=== PATIENT | female | born 1990 | race African-American/Black ===

== ENCOUNTER 2017-11-19 18:33 | Emergency (ER) | payer BC, SELFPAY ==
[2017-11-19] MEDS ORDERED: Ibuprofen 800 MG TAB ONE (19:23)
== END 2017-11-19 19:45 | disposition home or self-care (01) ==
LOC: ERS 18:33
DX: G44.209 Tension-type headache, unspecified, not intractable (principal); G43.909 Migraine, unspecified, not intractable, without status migrainosus
CPT/HCPCS: 99283

== ENCOUNTER 2020-09-01 22:40 | Inpatient (IN) | payer BC, OTHER ==
[~2020-09-01 22:40] MED LIST: Iopamidol 370 76% 100 ML VIAL ONE
[2020-09-01] MEDS ORDERED: Fentanyl 100 MCG/2 ML VIAL ONE (22:49)
[2020-09-01 23:09] LABS: #Basophils 0.1 thou/uL (0.0-0.2); #Eosinphils 0.1 thou/uL (0.0-0.7); #Lymphocytes 3.2 thou/uL (1.20-3.40); #Monocytes 0.9 thou/uL (0.11-0.59); #Neutrophils 3.5 thou/uL (1.40-6.50); %Basophils 1.4 % (0.0-1.0); %Eosinophils 1.4 % (0.0-10.0); %Lymphocytes 40.7 % (21.0-51.0); %Monocytes 11.8 % (0.0-10.0); %Neutrophils 44.7 % (42.0-75.0); Hemoglobin 12.9 g/dL (12.0-16.0); Mean Corpuscular HGB CONC 33.1 g/dL (32.0-36.0); Mean Corpuscular Hemoglobin 29.3 pg (27.0-31.0); Mean Corpuscular Volume 88.5 fL (78.0-98.0); Mean Platelet Volume 9.1 fL (7.4-10.4); Platelet Count 205 thou/uL (130-400); RBC Distribution Width 12.4 % (11.5-14.5); Red Blood Cell (RBC) Count 4.42 mill/uL (4.20-5.40); White Blood Cell (WBC) Count 7.8 thou/uL (4.8-10.8)
[2020-09-01 23:30] LABS: ALT (SGPT) 69 U/L (8-55); AST (SGOT) 99 U/L (5-34); Albumin 4.2 g/dL (3.5-5.0); Alkaline Phosphatase 132 U/L (40-110); Anion Gap 13 mmol/L (10-20); BUN (Urea Nitrogen) 15 mg/dL (7.0-18.7); Bilirubin, Total 0.3 mg/dL (0.2-1.2); Calc. Creatinine Clearance 0 mL/min (70-130); Calcium 8.5 mg/dL (7.8-10.44); Carbon Dioxide 25 mmol/L (22-29); Chloride 106 mmol/L (98-107); Estimated GFR-MDRD Greater than 90; Globulin 3.2 g/dL (2.4-3.5); Glucose 92 mg/dL (70-105); Lipase 62 U/L (8-78); Potassium 3.4 mmol/L (3.5-5.1); Protein, Total 7.4 g/dL (6.0-8.3); Sodium 141 mmol/L (136-145)
[2020-09-02 00:06] LABS: Bacteria/HPF None Seen HPF (None Seen); Bilirubin Negative (Negative); Blood, Urine Negative (Negative); Clarity Clear (Clear); Glucose, Urine (Dipstick) Normal (Negative); Ketone, Urine Negative (Negative); Leukocyte 75 Leu/uL (Negative); Nitrite Negative (Negative); Protein, Urine (Dipstick) Negative (Neg-Trace); RBC/HPF 0-3 HPF (0-3); Specific Gravity, Urine 1.016 (1.002-1.036); Urobilinogen Normal mg/dL (Less than 2); WBC/HPF 0-3 HPF (0-3)
[2020-09-02 00:08] LABS: Pregnancy Test - Urine (BHCG) Negative (Negative); Pregu Control Background? CLEAR/WHITE (CLR/WHITE); Pregu Control Bar Appear? YES (CONTROL BAR); Specific Gravity 1.016 (1.002-1.036)
[2020-09-02] MEDS ORDERED: Ketorolac Tromethamine 30 MG/ML VIAL ONE (02:45)
[2020-09-02 03:19] VITALS: BMI 34.7
[2020-09-02] MEDS ORDERED: Ondansetron ODT 4 MG TAB SL PRN (03:30)
[2020-09-02] MEDS ORDERED: Sodium Chloride 0.9% 1,000 ML IV SCH (03:30)
[2020-09-02] MEDS ORDERED: Ondansetron PF 4 MG/2 ML Vial IVP PRN (03:30)
[2020-09-02] MEDS ORDERED: Acetaminophen 325 MG TAB PO PRN (03:30)
[2020-09-02] MEDS ORDERED: Promethazine HCl 12.5 MG in Sodium Chloride 0.9% 50 ML IVPB PRN (04:50)
[2020-09-02] MEDS ORDERED: Morphine 2 MG/ML VIAL SLOW IVP PRN ×2 (04:50→04:59)
[2020-09-02] MEDS ORDERED: HYDROcodone/Acetaminophen 5/325 mg Tablet PO PRN (04:50)
[2020-09-02] MEDS ORDERED: Labetalol HCl 100 MG/20 ML VIAL SLOW IVP PRN (04:50)
[2020-09-02] MEDS ORDERED: hydrALAZINE 20 MG/ML VIAL SLOW IVP PRN (04:50)
[2020-09-02] MEDS ORDERED: cloNIDine 0.1 MG TAB PO PRN (04:50)
--- NOTE | 2020-09-02 04:53 | PDOC.HHP ---
Hospitalist HPI - History of Present Illness Abdominal pain History of Present Illness: Patient is a 30 year old female with PMH HTN who presents to ED for sudden onset abdominal pain. Patient developed R sided abdominal pain today so severe she fell over. She has never had anything like this happen before. No known family history of gallbladder disease. Pain is 10/10 associated with multiple episodes vomiting. She has morphine allergy in chart but tolerated dose in ED. in ed AKP 132, abd us and ct a/p reports pending but prelim suggests ductal dilation, ed discussed with Dr nieto who recommended GI consult in AM. patient admitted for presumed cholecystitis/choledocolithiasis. Hospitalist ROS - Review of Systems Constitutional: denies: fever, chills, sweats, weakness, malaise, other Eyes: denies: pain, vision change, conjunctivae inflammation, eyelid inflammation, redness, other ENT: denies: ear pain, ear discharge, nose pain, nose discharge, nose congestion, mouth pain, mouth swelling, throat pain, throat swelling, other Respiratory: denies: cough, dry, shortness of breath, hemoptysis, SOB with excertion, pleuritic pain, sputum, wheezing, other Cardiovascular: denies: chest pain, palpitations, orthopnea, paroxysmal noc. d yspnea, edema, light headedness, other Gastrointestinal: reports: nausea, vomiting, abdominal pain. denies: diarrhea, constipation, melena, hematochezia, other Genitourinary: denies: dysuria, frequency, incontinence, hematuria, retention, other Musculoskeletal: denies: neck pain, shoulder pain, arm pain, back pain, hand pa in, leg pain, foot pain, other Skin: denies: rash, lesions, brisa, bruising, other Neurological: denies: weakness, numbness, incoordination, change in speech, confusion, seizures, other All other systems reviewed; all pertinent +/- noted in HPI/Subj - Medication Medications: Active Medications Generic Name Dose Route Start Last Admin Trade Name Freq PRN Reason Stop Dose Admin Sodium Chloride 1,000 mls @ 75 mls/hr 09/02/20 03:30 09/02/20 03:34 Normal Saline 0.9% IV 09/02/20 14:15 1,000 mls .[id number] RICHIE Administration nifedipine Hospitalist History - Past Medical History Other Medical History: HTN migraines - Past Surgical History Past Surgical History: reports: no pertinent history - Family History Family History: reports: no pertinent history - Social History Smoking Status: Never smoker Alcohol: reports: None Drugs: reports: none - Exam General Appearance: NAD, awake alert Eye: PERRL, anicteric sclera ENT: normocephalic atraumatic, no oropharyngeal lesions, moist mucosa Neck: supple, symmetric, no JVD, no thyromegaly, no lymphadenopathy, no carotid bruit Heart: RRR, no murmur, no gallops, no rubs, normal peripheral pulses Respiratory: CTAB, no wheezes, no rales, no ronchi, normal chest expansion, no tachypnea, normal percussion Gastrointestinal: soft, non-distended, normal bowel sounds, no palpable masses, no hepatomegaly, no splenomegaly, no bruit Gastrointestinal - other findings: RUQ tenderness Extremities: no cyanosis, no clubbing, no edema Skin: normal turgor, no lesions, no rashes Neurological: cranial nerve grossly intact, normal sensation to touch, no weakness, no focal deficits, no new deficit Musculoskeletal: normal tone, normal strength, no muscle wasting Psychiatric: normal affect, normal behavior, A&O x 3 Hospitalist Results - Labs Result Diagrams: 09/01/20 22:49 09/01/20 22:49 Lab results: WBC 7.8 thou/uL (4.8-10.8) 09/01/20 22:49 Hgb 12.9 g/dL (12.0-16.0) 09/01/20 22:49 Hct 39.1 % (36.0-47.0) 09/01/20 22:49 MCV 88.5 fL (78.0-98.0) 09/01/20 22:49 Plt Count 205 thou/uL (130-400) 09/01/20 22:49 Neutrophils % 44.7 % (42.0-75.0) 09/01/20 22:49 Sodium 141 mmol/L (136-145) 09/01/20 22:49 Potassium 3.4 mmol/L (3.5-5.1) L 09/01/20 22:49 Chloride 106 mmol/L (98-107) 09/01/20 22:49 Carbon Dioxide 25 mmol/L (22-29) 09/01/20 22:49 BUN 15 mg/dL (7.0-18.7) 09/01/20 22:49 Creatinine 0.77 mg/dL (0.6-1.1) 09/01/20 22:49 Glucose 92 mg/dL (70-105) 09/01/20 22:49 Calcium 8.5 mg/dL (7.8-10.44) 09/01/20 22:49 Total Bilirubin 0.3 mg/dL (0.2-1.2) 09/01/20 22:49 AST 99 U/L (5-34) H 09/01/20 22:49 ALT 69 U/L (8-55) H 09/01/20 22:49 Alkaline Phosphatase 132 U/L (40-110) H 09/01/20 22:49 Serum Total Protein 7.4 g/dL (6.0-8.3) 09/01/20 22:49 Albumin 4.2 g/dL (3.5-5.0) 09/01/20 22:49 Lipase 62 U/L (8-78) 09/01/20 22:49 Urine Ketones Negative mg/dL (Negative) 09/01/20 23:39 Urine Blood Negative (Negative) 09/01/20 23:39 Urine Nitrite Negative (Negative) 09/01/20 23:39 Ur Leukocyte Esterase 75 Vasquez/uL (Negative) A 09/01/20 23:39 Urine RBC 0-3 HPF (0-3) 09/01/20 23:39 Urine WBC 0-3 HPF (0-3) 09/01/20 23:39 Ur Squamous Epith Cells 4-6 HPF (0-3) A 09/01/20 23:39 Urine Bacteria None Seen HPF (None Seen) 09/01/20 23:39 Additional comment: VITAL SIGNS Wed Sep 02, 2020 02:48 ARMINDA Ward, Regla BP: 165/107 Pulse: 70 Resp: 18 Temp: 98.0 (Oral) Pain: 7 O2 sat: 98 on (Room Air) Time: 09/02/2020 02:48. labs, imaging reports, ED documents reviewed Hospitalist H&P A/P - Plan Plan: 30F with PMH HTN admitted for abdominal pain. # abdominal pain # gallbladder disease - sudden 09/05 RUQ pain, imaging preliminary concerning for duct dilation - admit to floor - allergies noted, continue morphine since tolerated in ED, start cipro/flagyl - consult GI/general surgery # HTN - continue nifedipine, no hypotension or sepsis i can see
[2020-09-02] MEDS ORDERED: Electrolyte Replacement Protoc 1 EACH EACH FS SCH (05:00)
[2020-09-02] MEDS: Sodium Chloride 0.9% 1,000 ML IV SCH ×3 (05:07→20:17)
[2020-09-02] MEDS: Cipro 250 MG TAB PO SCH ×2 (05:44→20:15)
[2020-09-02] MEDS: Fentanyl 100 MCG/2 ML VIAL SLOW IVP PRN ×2 (05:45→18:41)
[2020-09-02] MEDS ORDERED: Piperacillin/Tazobactam 3.375 GM in Sodium Chloride 0.9% 100 ML IVPB SCH (06:00)
--- NOTE | 2020-09-02 08:14 | ULT ---
PRELIMINARY REPORT/[facility]/EMERGENCY AFTER HOURS PROCEDURE: EXAM: US Abdomen Limited, Right Upper Quadrant. CLINICAL HISTORY: RUQ pain, N/V, please compare to previous CT ABD TECHNIQUE: Real-time ultrasound of the right upper quadrant with image documentation. COMPARISON: CT - CT ABDOMEN PELVIS W CO - 09/02/2020 12:17 AM CDT FINDINGS: LIVER: Measures 16.5 cm and demonstrates multiple small cysts. GALLBLADDER: No gallstone. No wall thickening. No pericholecystic fluid. The gallbladder appears distended and co ntains sludge. The patient demonstrated a positive sonographic Johnson sign. COMMON BILE DUCT: Appears dilated at 9 mm. PANCREAS: Partially obscured by overlying bowel gas. RIGHT KIDNEY: Unremarkable. No hydronephrosis. Measures 11.8 cm IMPRESSION: Gallbladder sludge. The patient demonstrated a positive sonographic Johnson sign however there is no e vidence for wall thickening or pericholecystic fluid. ELECTRONICALLY SIGNED BY: Talha Stephenson MD Sep 02, 2020 1:55:14 AM CDT This report is intended for review by the ordering physician only, in accordance of law. If you recei ve this report in error, please call [facility] at [phone]. FINAL REPORT GALLBLADDER ULTRASOUND: Echogenic sludge is seen in the gallbladder. No definite gallstone. There is mild dilatation in the common bile duct which corresponds to the CT findings. No significant intrahepatic ductal dilatatio n apparent. I am in agreement with the preliminary report. POS: AGW
--- NOTE | 2020-09-02 08:15 | CT ---
PRELIMINARY REPORT/[facility]/EMERGENCY AFTER HOURS PROCEDURE: EXAM: CT Abdomen and Pelvis with Intravenous Contrast CLINICAL HISTORY: ER 7... 22-year-old female presenting to the emergency department with sudden onset right lower quadr ant abdominal pain. Patient has a history of hypertension otherwise healthy. Patient states she was s itting on the couch when it happened pain was sudden and excruciating. Associated with nausea. No his tory of abdominal surgeries. TECHNIQUE: Axial computed tomography images of the abdomen and pelvis with intravenous contrast. CONTRAST: With; ISOVUE 370, 90ML COMPARISON: None provided. FINDINGS: LUNG BASES: Left lower lobe atelectasis. LIVER: There is hepatic periportal edema. This is nonspecific and can be idiopathic but can also be associat ed with any inflammatory cause of the liver or bile ducts, a generalized edematous state or aggressiv e intravenous fluid administration, venous congestion (most often cardiac related), or blunt hepatic trauma. Recommend correlation with liver function tests and clinical history. A few nonspecific hepatic parenchymal hypodensities, the largest measuring 6 mm in the lateral periph narda of the right lobe of the liver. These most likely reflect cysts or biliary hamartomas. No further follow-up is necessary unless the patient is high risk (known primary malignancy, cirrhosis, hepatit is, sclerosing cholangitis, primary biliary cirrhosis, hemochromatosis, oral contraceptive use, or an abolic steroid use). If high risk, follow-up hepatic protocol CT or MRI is recommended in 6 months. GALLBLADDER AND BILE DUCTS: Small focal calcification along the left lateral nondependent aspect of the gallbladder fundus which may reflect an adherent calculus or possibly a focus of adenomyomatosis. PANCREAS: Unremarkable. SPLEEN: Unremarkable. ADRENAL GLANDS: Unremarkable. KIDNEYS, URETERS, AND BLADDER: Unremarkable. No hydronephrosis or nephrolithiasis. No ureteral or bladder calculi. STOMACH AND BOWEL: No obstruction. No wall thickening. No CT evidence of colitis or acute diverticulitis. APPENDIX: The appendix is normal. PERITONEUM: No free fluid. No free air. REPRODUCTIVE: Unremarkable as visualized. VASCULATURE: No aortic aneurysm. BONES: No fracture or suspicious osseous abnormality. ABDOMINAL WALL AND SOFT TISSUES: Unremarkable. IMPRESSION: 1. There is hepatic periportal edema. This is nonspecific and can be idiopathic but can also be assoc iated with any inflammatory cause of the liver or bile ducts, a generalized edematous state or aggres sive intravenous fluid administration, venous congestion (most often cardiac related), or blunt hepat ic trauma. Recommend correlation with liver function tests and clinical history. 2. Small focal calcification along the left lateral nondependent aspect of the gallbladder fundus whi ch may reflect an adherent calculus or possibly a focus of adenomyomatosis. 3. A few nonspecific hepatic parenchymal hypodensities, the largest measuring 6 mm in the lateral per iphery of the right lobe of the liver. These most likely reflect cysts or biliary hamartomas. No furt her follow-up is necessary unless the patient is high risk (known primary malignancy, cirrhosis, hepa titis, sclerosing cholangitis, primary biliary cirrhosis, hemochromatosis, oral contraceptive use, or anabolic steroid use). If high risk, follow-up hepatic protocol CT or MRI is recommended in 6 months . ELECTRONICALLY SIGNED BY: Bryon Espana MD Sep 02, 2020 1:07:50 AM CDT This report is intended for review by the ordering physician only, in accordance of law. If you recei ve this report in error, please call [facility] at [phone]. FINAL REPORT CT ABDOMEN AND PELVIS: Preliminary report describes periportal edema within the liver. I am in agreement with this assessme nt. Some of this finding may represent mild intrahepatic biliary duct dilatation. Radiopaque gallst ones may not be apparent on CT. Suggest further evaluation with right upper quadrant ultrasound. I am in agreement with the preliminary report. POS: AXEL
[2020-09-02] MEDS: metroNIDAZOLE 500 MG TAB PO SCH ×3 (08:37→20:15)
[2020-09-02] MEDS: Famotidine 20 MG TAB PO SCH ×2 (08:37→20:15)
--- NOTE | 2020-09-02 10:06 | PDOC.HOSPP ---
- Subjective Encounter Date: 09/02/20 Encounter Time: 10:03 Subjective: RUQ pain persists - Objective Vital Signs & Weight: Vital Signs (12 hours) Temp Pulse Resp BP BP Pulse Ox 09/02/20 08:00 99 09/02/20 07:44 97.9 F 76 20 127/78 99 09/02/20 03:55 97 09/02/20 03:18 97 09/02/20 03:16 98.1 F 65 16 141/58 H 97 Weight Weight 234 lb 14.4 oz I&O: 09/01/20 09/02/20 09/03/20 06:59 06:59 06:59 Intake Total 0 Balance 0 Result Diagrams: 09/01/20 22:49 09/01/20 22:49 Hospitalist ROS - Medication Medications: Active Medications Generic Name Dose Route Start Last Admin Trade Name Freq PRN Reason Stop Dose Admin Ciprofloxacin 250 mg 09/02/20 06:00 09/02/20 05:44 Cipro 250 Mg Tab PO 250 mg BID@0600,2000 RICHIE Administration Famotidine 20 mg 09/02/20 09:00 09/02/20 08:37 Famotidine 20 Mg Tab PO 20 mg BID RICHIE Administration Fentanyl 50 mcg 09/02/20 05:34 09/02/20 05:45 Fentanyl 100 Mcg/2 Ml Vial SLOW IVP 50 mcg Q4H PRN Administration Pain Sodium Chloride 1,000 mls @ 75 mls/hr 09/02/20 03:30 09/02/20 03:34 Normal Saline 0.9% IV 09/02/20 14:15 1,000 mls .[id number] RICHIE Administration Sodium Chloride 1,000 mls @ 100 mls/hr 09/02/20 05:00 09/02/20 05:07 Normal Saline 0.9% IV Not Given .Q10H RICHIE Metronidazole 500 mg 09/02/20 09:00 09/02/20 08:37 Metronidazole 500 Mg Tab PO 500 mg TID RICHIE Administration - Exam Eye: anicteric sclera Neck: no JVD Heart: RRR Respiratory: CTAB Gastrointestinal: soft, normal bowel sounds Gastrointestinal - other findings: mild RUQ tenderness Extremities: no edema Hosp A/P (1) Abdominal pain Code(s): R10.9 - UNSPECIFIED ABDOMINAL PAIN Status: Acute (2) Cholecystitis Code(s): K81.9 - CHOLECYSTITIS, UNSPECIFIED Status: Acute - Plan HIDA scan iv analgesia
[2020-09-02] MEDS ORDERED: Potassium Chloride 20 MEQ TAB PO SCH (10:15)
--- NOTE | 2020-09-02 10:42 | CON ---
DATE OF CONSULTATION: CHIEF COMPLAINT: Right upper quadrant abdominal pain. HISTORY OF PRESENT ILLNESS: This is a 30-year-old female, who had a severe episode of pain last night after eating [employer]urgers. The pain did not radiate. She was vomiting. No previous episodes. No fever. She says it feels fine now. PAST MEDICAL HISTORY: Obese, hypertension, migraine headaches. PAST SURGICAL HISTORY: None. MEDICATIONS: She is on an antihypertensive. ALLERGIES: TO PENICILLIN, MORPHINE. SOCIAL HISTORY: She is single. 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 No tobacco or alcohol. FAMILY HISTORY: Hypertension, diabetes, and breast cancer. PHYSICAL EXAMINATION: VITAL SIGNS: Temperature 98, pulse 65, blood pressure 141/58. GENERAL: She is awake, alert, in no apparent distress. HEENT: No jaundice. LUNGS: Clear. HEART: Regular rate and rhythm. ABDOMEN: Obese, soft, nontender. EXTREMITIES: Unremarkable. LABORATORY DATA: White count 7.8, hemoglobin and hematocrit are 12 and 39, platelet count 205. Electrolytes are fine. She had a mild elevation of her AST at 99, ALT at 69, alkaline phosphatase at 138, normal total bilirubin at 0.3. Ultrasound showed dilated common bile duct, but no stones. This was confirmed by CT. ASSESSMENT: Possible choledocholithiasis, but no cholelithiasis. PLAN: GI consultation. Job ID: [id number]
[2020-09-02 12:01] LABS: SARS-CoV-2 MS2 Positive; SARS-CoV-2 N Gene Negative; SARS-CoV-2 S Gene Negative; SARS-CoV-2 by NAA Not Detected (NotDetected); SARS-CoV-2 orf1ab Negative
[2020-09-02] MEDS: Ondansetron PF 4 MG/2 ML Vial IVP PRN (16:12)
--- NOTE | 2020-09-02 16:22 | NM ---
EXAM: NM Hida Scan W Drug PROVIDED CLINICAL HISTORY: Suspected cholecystitis. Patient has right upper quadrant abdominal pain with recent gallbladder ultr asound demonstrating distention of the gallbladder with gallbladder sludge and dilated common duct. Recent CT scan examination also shows mild intrahepatic biliary ductal dilatation. COMPARISON: Right upper quadrant ultrasound and CT abdomen on 09/02/2020. FINDINGS: There is prompt uptake of radiotracer by the liver. No biliary activity is visualized on the one-hour image or the 2 and 4 hour delayed images. No activity is seen in the gallbladder or in the bowel imaging up to 4 hours. IMPRESSION: Absence of biliary or bowel activity imaging up to 4 hours. Findings may be related to high-grade kris iary obstruction or secondary to liver disease. However, given biliary ductal dilatation on recent CT exam, findings are thought to more likely be related to biliary obstruction as opposed to liver di sease although associated liver disease is a possibility.
[2020-09-02 17:07] LABS: #Eosinphils 0.1 thou/uL (0.0-0.7); #Lymphocytes 1.4 thou/uL (1.20-3.40); #Monocytes 0.7 thou/uL (0.11-0.59); #Neutrophils 2.4 thou/uL (1.40-6.50); %Eosinophils 1.7 % (0.0-10.0); %Lymphocytes 30.7 % (21.0-51.0); %Monocytes 14.6 % (0.0-10.0); %Neutrophils 52.1 % (42.0-75.0); Hemoglobin 13.4 g/dL (12.0-16.0); Mean Corpuscular HGB CONC 33.1 g/dL (32.0-36.0); Mean Corpuscular Hemoglobin 29.3 pg (27.0-31.0); Mean Corpuscular Volume 88.4 fL (78.0-98.0); Mean Platelet Volume 9.1 fL (7.4-10.4); Platelet Count 205 thou/uL (130-400); RBC Distribution Width 12.2 % (11.5-14.5); Red Blood Cell (RBC) Count 4.57 mill/uL (4.20-5.40); White Blood Cell (WBC) Count 4.6 thou/uL (4.8-10.8)
[2020-09-02 17:35] LABS: ALT (SGPT) 833 U/L (8-55); AST (SGOT) 821 U/L (5-34); Albumin 3.8 g/dL (3.5-5.0); Alkaline Phosphatase 190 U/L (40-110); Anion Gap 13 mmol/L (10-20); BUN (Urea Nitrogen) 10 mg/dL (7.0-18.7); Bilirubin, Total 2.1 mg/dL (0.2-1.2); Calc. Creatinine Clearance 198 mL/min (70-130); Calcium 8.6 mg/dL (7.8-10.44); Carbon Dioxide 22 mmol/L (22-29); Chloride 109 mmol/L (98-107); Estimated GFR-MDRD Greater than 90; Globulin 3.3 g/dL (2.4-3.5); Glucose 82 mg/dL (70-105); Potassium 3.7 mmol/L (3.5-5.1); Protein, Total 7.1 g/dL (6.0-8.3); Sodium 140 mmol/L (136-145)
[2020-09-02] MEDS: Enoxaparin Sodium 40 MG/0.4 ML SYRINGE SC SCH (20:15)
--- NOTE | 2020-09-03 00:09 | CON ---
DATE OF CONSULTATION: 09/02/2020 CHIEF COMPLAINT: Abdominal pain. HISTORY OF PRESENT ILLNESS: Ms. Mccullough is a 30-year-old woman who was sitting on her couch last night and about 10 minutes after eating some [employer] [place] fries, developed an acute right upper quadrant sharp pain that did not radiate. The pain persisted, and she took an ambulance to the emergency room and vomited in her ambulance ride. She has had no diarrhea or constipation or blood in the stool. No fever with this. She received morphine in the emergency room and a dose of fentanyl this morning but since then has not required pain medicine. Her pain has significantly improved. She had a CT scan of the abdomen and pelvis performed in the emergency room, which showed mild dilation of the common bile duct. She had focal calcification along the dependent aspect of the gallbladder. Some hepatic periportal edema was noted. A few small hepatic hypodensities measuring up to 6 mm were also noted. Ultrasound of the gallbladder showed echogenic sludge in the gallbladder without definite stones. Again, mild dilation of the common bile duct to 9 mm was noted. She had a HIDA scan today that did not show emptying of contrast into the small bowel or biliary tree or gallbladder. She has had no fever. PAST MEDICAL HISTORY: Hypertension, migraine headaches. PAST SURGICAL HISTORY: Negative. FAMILY HISTORY: Negative for GI malignancy. SOCIAL HISTORY: No alcohol, tobacco, or drugs. ALLERGIES: MORPHINE AND PENICILLIN. INPATIENT MEDICATIONS: Include: 1. Ciprofloxacin. 2. Metronidazole. 3. Famotidine. 4. Enoxaparin. REVIEW OF SYSTEMS: Negative x10 systems reviewed except as stated in the history of present illness. PHYSICAL EXAMINATION: VITAL SIGNS: Temperature 97.7, pulse 61, blood pressure 148/86. GENERAL: She is in no acute distress. Alert and oriented x3. HEENT: Eyes have no scleral icterus. Oropharynx is clear without lesions. NECK: No cervical or supraclavicular lymphadenopathy. LUNGS: Clear to auscultation bilaterally. HEART: Regular rate and rhythm without murmur. ABDOMEN: Soft. She is tender over the right upper quadrant, worse with inspiration. Bowel sounds are present. EXTREMITIES: No lower extremity edema. NEUROLOGIC: Cranial nerves are grossly intact. LABORATORY DATA: White blood cell count 4.6, hemoglobin 13.4, platelets 205. Creatinine 0.71; bilirubin is 2.1, up from 0.3 last night. AST , up from 99 last night; ALT , up from 69 last night; alkaline phosphatase 190; albumin 3.8; lipase 62 last night. IMPRESSION: Choledocholithiasis. RECOMMENDATIONS: Follow through with ERCP in the morning. Cholecystectomy can follow that procedure or the next day. Risks and benefits of ERCP were discussed in detail with the patient. Job ID: [id number]
[2020-09-03] MEDS: Cipro 250 MG TAB PO SCH ×2 (06:20→20:00)
[2020-09-03 06:50] LABS: #Eosinphils 0.1 thou/uL (0.0-0.7); #Lymphocytes 1.1 thou/uL (1.20-3.40); #Monocytes 0.6 thou/uL (0.11-0.59); #Neutrophils 3.9 thou/uL (1.40-6.50); %Basophils 0.5 % (0.0-1.0); %Eosinophils 1.1 % (0.0-10.0); %Lymphocytes 18.8 % (21.0-51.0); %Monocytes 11.3 % (0.0-10.0); %Neutrophils 68.2 % (42.0-75.0); Hemoglobin 12.9 g/dL (12.0-16.0); Mean Corpuscular HGB CONC 31.8 g/dL (32.0-36.0); Mean Corpuscular Hemoglobin 28.5 pg (27.0-31.0); Mean Corpuscular Volume 89.6 fL (78.0-98.0); Mean Platelet Volume 9.6 fL (7.4-10.4); Platelet Count 194 thou/uL (130-400); RBC Distribution Width 12.2 % (11.5-14.5); Red Blood Cell (RBC) Count 4.55 mill/uL (4.20-5.40); White Blood Cell (WBC) Count 5.7 thou/uL (4.8-10.8)
[2020-09-03 06:51] LABS: ALT (SGPT) 646 U/L (8-55); AST (SGOT) 367 U/L (5-34); Albumin 3.8 g/dL (3.5-5.0); Alkaline Phosphatase 199 U/L (40-110); Anion Gap 15 mmol/L (10-20); BUN (Urea Nitrogen) 11 mg/dL (7.0-18.7); Bilirubin, Direct 0.6 mg/dL (0.1-0.3); Calc. Creatinine Clearance 201 mL/min (70-130); Calcium 8.8 mg/dL (7.8-10.44); Carbon Dioxide 20 mmol/L (22-29); Chloride 107 mmol/L (98-107); Estimated GFR-MDRD Greater than 90; Glucose 66 mg/dL (70-105); Magnesium 1.6 mg/dL (1.6-2.6); Potassium 3.8 mmol/L (3.5-5.1); Protein, Total 6.9 g/dL (6.0-8.3); Sodium 138 mmol/L (136-145)
[2020-09-03] MEDS: metroNIDAZOLE 500 MG TAB PO SCH ×3 (08:01→20:01)
[2020-09-03] MEDS: Famotidine 20 MG TAB PO SCH ×2 (08:02→20:00)
[2020-09-03] MEDS: Sodium Chloride 0.9% 1,000 ML IV SCH ×2 (08:45→20:42)
[2020-09-03] MEDS ORDERED: Lidocaine 1% PF 5 ML VIAL ONE (09:34)
[2020-09-03] MEDS ORDERED: PROPOFOL 200 MG/20 ML VIAL ONE (09:34)
[2020-09-03] MEDS ORDERED: Rocuronium Bromide 10 MG/ML (10ML VIAL) ONE (09:34)
[2020-09-03] MEDS ORDERED: Magnesium 2 GM/50 ML 2 GM in Premix Bag 1 BAG IVPB SCH ×2 (10:30→15:00)
[2020-09-03] MEDS ORDERED: Iothalamate Meglumine 60% 50 ML VIAL FS ONE (10:41)
[2020-09-03] MEDS ORDERED: Fentanyl 100 MCG/2 ML VIAL ONE ×2 (10:43→13:12)
[2020-09-03] MEDS ORDERED: SUGAMMADEX SODIUM 200 MG/2 ML VIAL ONE (10:43)
[2020-09-03] MEDS ORDERED: Indomethacin 50 MG SUPP ONE (10:48)
[2020-09-03] MEDS ORDERED: Ondansetron HCl/PF 4 MG/2 ML Vial IVP PRN (12:46)
[2020-09-03] MEDS ORDERED: Promethazine HCl 25 MG/ML VIAL IM PRN (12:46)
[2020-09-03] MEDS ORDERED: Promethazine HCl 25 MG/ML VIAL SLOW IVP PRN (12:46)
--- NOTE | 2020-09-03 12:52 | RAD ---
XR ERCP History: Elevated total bilirubin Comparison: Nuclear medicine hepatobiliary scan prior day Findings: Only 2 spot images were obtained from the procedure room. There is no dilatation of the com mon bile duct or the intrahepatic biliary system. There is felt to be some contrast extending into the gallbladder on the second image. Impression: Fluoroscopy for procedural purposes.
[2020-09-03] MEDS ORDERED: Labetalol HCl 100 MG/20 ML VIAL ONE (13:01)
[2020-09-03] MEDS ORDERED: Ondansetron PF 4 MG/2 ML Vial ONE (13:16)
[2020-09-03] MEDS ORDERED: cloNIDine 0.1 MG TAB ONE (13:30)
--- NOTE | 2020-09-03 15:48 | PRG ---
DATE OF SERVICE: 09/03/2020 SUBJECTIVE: The patient underwent ERCP today. She is doing okay. PLAN: The plan is to proceed with laparoscopic cholecystectomy tomorrow morning. I discussed the procedure with her as well as risks and benefits. We have her scheduled for 9 o'clock tomorrow morning. Job ID: [id number]
--- NOTE | 2020-09-03 16:38 | PDOC.HOSPP ---
- Subjective Encounter Date: 09/03/20 Encounter Time: 16:37 Subjective: post ERCP, much less abd pain - Objective Vital Signs & Weight: Vital Signs (12 hours) Temp Pulse Resp BP Pulse Ox 09/03/20 08:00 97.9 F 74 18 132/81 97 09/03/20 07:50 97.9 F 74 132/81 98 09/03/20 06:41 97.8 F 77 16 117/79 98 Weight Weight 234 lb 14.4 oz I&O: 09/02/20 09/03/20 09/04/20 06:59 06:59 06:59 Intake Total 0 628 Balance 0 628 Result Diagrams: 09/03/20 05:36 09/03/20 05:45 Hospitalist ROS - Medication Medications: Active Medications Generic Name Dose Route Start Last Admin Trade Name Freq PRN Reason Stop Dose Admin Ciprofloxacin 250 mg 09/02/20 06:00 09/03/20 06:20 Cipro 250 Mg Tab PO Not Given BID@0600,2000 [facility] Enoxaparin Sodium 40 mg 09/02/20 21:00 09/02/20 20:15 Enoxaparin Sodium 40 Mg/0.4 Ml Syringe SC 40 mg 2100 RICHIE Administration Famotidine 20 mg 09/02/20 09:00 09/03/20 08:02 Famotidine 20 Mg Tab PO Not Given BID RICHIE Fentanyl 50 mcg 09/02/20 05:34 09/02/20 18:41 Fentanyl 100 Mcg/2 Ml Vial SLOW IVP 50 mcg Q4H PRN Administration Pain Sodium Chloride 1,000 mls @ 100 mls/hr 09/02/20 05:00 09/03/20 08:45 Normal Saline 0.9% IV 1,000 mls .Q10H RICHIE Administration Metronidazole 500 mg 09/02/20 09:00 09/03/20 15:13 Metronidazole 500 Mg Tab PO 500 mg TID RICHIE Administration Ondansetron HCl 4 mg 09/02/20 04:50 09/02/20 16:12 Ondansetron Pf 4 Mg/2 Ml Vial IVP 4 mg Q6H PRN Administration Nausea/Vomiting use 1st - Exam General Appearance: awake alert Neck: no JVD Heart: RRR, no murmur Respiratory: CTAB Gastrointestinal: soft, normal bowel sounds Extremities: no edema Hosp A/P (1) Abdominal pain Code(s): R10.9 - UNSPECIFIED ABDOMINAL PAIN Status: Acute Qualifiers: Abdominal location: epigastric Qualified Code(s): R10.13 - Epigastric pain (2) Cholecystitis Code(s): K81.9 - CHOLECYSTITIS, UNSPECIFIED Status: Acute (3) Choledocholithiasis Code(s): K80.50 - CALCULUS OF BILE DUCT W/O CHOLANGITIS OR CHOLECYST W/O OBST Status: Acute - Plan Post ERCP with extraction common duct stones Lap heidi tomorrow
--- NOTE | 2020-09-03 17:24 | OP ---
DATE OF PROCEDURE: 09/03/2020 PROCEDURE: ERCP with sphincterotomy and removal of biliary calculus. INDICATION FOR PROCEDURE: Choledocholithiasis. DESCRIPTION OF PROCEDURE: After the risks and benefits of the procedure were explained to the patient including risks of bleeding, infection, perforation, reactions to anesthesia, aspiration, post ERCP pancreatitis, and/or pain, informed consent was obtained. The patient was then taken to the endoscopy suite where general anesthesia was administered followed by endotracheal tube intubation. Once the patient was adequately sedated and intubated, she was maneuvered into the prone position followed by introduction of the standard duodenoscope into the mouth with intubation of the esophagus, stomach, and the proximal small intestines with the findings listed below. The patient tolerated the procedure well with no immediate perioperative complications. Upon conclusion of the procedure, all equipment was removed from the patient, and she was transferred to PACU in satisfactory condition. FINDINGS: EGD findings: Limited views were obtained of the esophagus, stomach, and the proximal small intestines given the side-viewing nature of the duodenal scope. Of the limited views obtained, normal-appearing mucosa was seen in the proximal, mid, and distal esophagus. Normal-appearing mucosa was also seen in the gastric cardia, fundus, body, incisura, and antrum with mild erythema in the peripyloric region. Normal-appearing mucosa was also seen within the duodenal bulb and second portion of the duodenum. There was no evidence of erosions, ulcerations, mass lesions, or active/recent bleeding. ERCP findings: The duodenoscope was advanced to the second portion of the duodenum with easy identification of the ampulla; however, a small polypoid nodule immediately adjacent to the ampulla, raising concern for 2 exits/orifices for the pancreatic and common bile duct respectively. However, with identification of the ampulla, it was successfully cannulated with a 5 mm Ultratome sphincterotome with initial attempts at placing a guidewire within the common bile duct unsuccessful; however, with repositioning of the sphincterotome and with moderate difficulty, the guidewire was successfully placed within the common bile duct and into the intrahepatic biliary tree. With successful cannulation of the common bile duct, a cholangiogram was then performed showing the common bile duct measuring approximately 6 to 7 mm in size with no observed filling defects on initial examination. Given the higher likelihood of choledocholithiasis, the sphincterotome was then exchanged over the guidewire using exchange technique for a 9 to 12 mm biliary balloon. Once the exchange was successful, the biliary balloon was advanced into the common bile duct, and upon initial sweep of the duct, there was yielded some small yellow in coloration stone debris measuring approximately 1 mm in size. This stone debris was minimal at best. Further successive balloon sweeps throughout the entirety of the common hepatic and common bile duct did not yield any additional debris or biliary sludge. Occlusion cholangiogram performed at the end of the procedure showed nice smooth contours within the common bile duct and no additional filling defects. However, the gallbladder did not fill appropriately even with occlusion cholangiogram, raising concern for additional stones within the gallbladder. On conclusion of the procedure, contrast was seen draining effectively from the common bile duct with no obstruction noted, at which point the procedure was terminated. IMPRESSION: 1. Choledocholithiasis with a minimal amount of biliary debris measuring approximately 1 mm in diameter, now status post successful sphincterotomy and removal of biliary calculi. 2. Nonfilling of the gallbladder, raising concern for continued cholelithiasis and obstruction related to that. RECOMMENDATIONS: 1. Would continue to trend the patient's LFTs and monitor for signs of post ERCP pancreatitis in the postoperative period. 2. Would continue IV antibiotics as you are doing. 3. Pain control per primary team. 4. Would consult the General Surgery Service for evaluation of the patient and cholecystectomy in the near future. 5. Would hold any anticoagulation for the time being given the sphincterotomy performed today. We will continue to follow. Please call with any questions. Job ID: [id number]
[2020-09-03] MEDS: Ketorolac Tromethamine 30 MG/ML VIAL IVP PRN (19:59)
[2020-09-03] MEDS: Enoxaparin Sodium 40 MG/0.4 ML SYRINGE SC SCH (20:01)
[2020-09-03] MEDS ORDERED: cloNIDine 0.1 MG TAB PO PRN (20:35)
[2020-09-04] MEDS: Ketorolac Tromethamine 30 MG/ML VIAL IVP PRN ×2 (02:19→23:57)
[2020-09-04] MEDS: Acetaminophen 325 MG TAB PO PRN ×2 (06:01→20:31)
[2020-09-04] MEDS: Cipro 250 MG TAB PO SCH ×2 (06:01→20:32)
[2020-09-04 06:40] LABS: ALT (SGPT) 413 U/L (8-55); AST (SGOT) 122 U/L (5-34); Albumin 3.6 g/dL (3.5-5.0); Alkaline Phosphatase 182 U/L (40-110); Anion Gap 13 mmol/L (10-20); BUN (Urea Nitrogen) 12 mg/dL (7.0-18.7); Bilirubin, Total 0.5 mg/dL (0.2-1.2); Calc. Creatinine Clearance 201 mL/min (70-130); Calcium 8.7 mg/dL (7.8-10.44); Carbon Dioxide 26 mmol/L (22-29); Chloride 107 mmol/L (98-107); Estimated GFR-MDRD Greater than 90; Globulin 3.3 g/dL (2.4-3.5); Glucose 104 mg/dL (70-105); Potassium 3.6 mmol/L (3.5-5.1); Protein, Total 6.9 g/dL (6.0-8.3); Sodium 142 mmol/L (136-145)
[2020-09-04] MEDS: Famotidine 20 MG TAB PO SCH ×3 (07:15→20:34)
[2020-09-04] MEDS: metroNIDAZOLE 500 MG TAB PO SCH ×3 (07:15→20:32)
[2020-09-04] MEDS: Ondansetron PF 4 MG/2 ML Vial IVP PRN (07:15)
[2020-09-04] MEDS: Sodium Chloride 0.9% 1,000 ML IV SCH ×2 (07:16→16:46)
[2020-09-04] MEDS ORDERED: Bupivacaine/Epinephrine 0.25% 30 ML VIAL ONE (08:52)
[2020-09-04] MEDS ORDERED: Fentanyl 100 MCG/2 ML VIAL ONE ×2 (08:52→10:13)
[2020-09-04] MEDS ORDERED: Levofloxacin 500 mg/D5W 100 ml Premix Bag ONE (08:53)
[2020-09-04] MEDS ORDERED: SUGAMMADEX SODIUM 200 MG/2 ML VIAL ONE (08:53)
[2020-09-04] MEDS ORDERED: Meperidine HCl/PF 25 MG/ML VIAL ONE (08:53)
[2020-09-04] MEDS ORDERED: Famotidine/PF 20 mg/2ml Vial ONE (08:53)
[2020-09-04] MEDS ORDERED: Promethazine HCl 25 MG/ML VIAL IM PRN ×2 (09:34→10:06)
[2020-09-04] MEDS ORDERED: Meperidine HCl/PF 25 MG/ML VIAL SLOW IVP PRN (09:34)
[2020-09-04] MEDS ORDERED: Promethazine HCl 25 MG/ML VIAL SLOW IVP PRN (09:34)
[2020-09-04] MEDS ORDERED: Ondansetron HCl/PF 4 MG/2 ML Vial IVP PRN (09:34)
[2020-09-04] MEDS ORDERED: Ondansetron PF 4 MG/2 ML Vial IVP PRN (10:06)
[2020-09-04] MEDS ORDERED: Calcium Carbonate 500 MG ChewTAB PO PRN (10:06)
[2020-09-04] MEDS ORDERED: hydrALAZINE 20 MG/ML VIAL SLOW IVP PRN (10:06)
[2020-09-04] MEDS ORDERED: HYDROcodone/Acetaminophen 10/325 mg Tablet PO PRN (10:06)
[2020-09-04] MEDS ORDERED: Mag-Al 1200 mg/1200 mg/30 ML UDCUP PO PRN (10:06)
[2020-09-04] MEDS ORDERED: Dextrose 50% Abboject 50 ML SYRINGE SLOW IVP PRN (10:06)
[2020-09-04] MEDS ORDERED: Dextrose 5% in Water 1,000 ML IV PRN (10:06)
[2020-09-04] MEDS ORDERED: Dexamethasone 20 MG/5 ML VIAL ONE (10:10)
[2020-09-04] MEDS ORDERED: Rocuronium Bromide 10 MG/ML (10ML VIAL) ONE (10:10)
[2020-09-04] MEDS ORDERED: PHENYLEPHRINE-NS 100 MCG/ML 10 ML SYRINGE ONE (10:10)
[2020-09-04] MEDS ORDERED: Ondansetron PF 4 MG/2 ML Vial ONE (10:10)
[2020-09-04] MEDS ORDERED: Lidocaine 1% PF 5 ML VIAL ONE (10:10)
[2020-09-04] MEDS ORDERED: Ketorolac Tromethamine 30 MG/ML VIAL ONE (10:10)
[2020-09-04] MEDS ORDERED: PROPOFOL 200 MG/20 ML VIAL ONE (10:10)
[2020-09-04] MEDS ORDERED: Metoclopramide HCl 10 MG/2 ML VIAL ONE (10:10)
--- NOTE | 2020-09-04 11:34 | OP ---
DATE OF PROCEDURE: 09/04/2020 PREOPERATIVE DIAGNOSIS: Symptomatic cholelithiasis. PROCEDURE PERFORMED: Laparoscopic cholecystectomy. INDICATIONS: This is a 30-year-old female, morbidly obese, who came in with severe right upper quadrant pain radiating to the back. Ultrasound and CT did not show any gallstones, but she developed a bump in her LFTs. GI was consulted. ERCP was performed and stone extracted. She is here for a cholecystectomy. FINDINGS: Her cystic duct was enlarged. There was edema of the lower portion of the gallbladder from inflammation. DESCRIPTION OF PROCEDURE: After informed consent was obtained, the patient was taken to the operating room, given general endotracheal anesthesia, placed in the supine position. Abdomen was prepped and draped in usual fashion. Local anesthesia infiltrated subcutaneously and deep, and a subumbilical incision was performed. Subcu divided sharply. The fascia grasped. Two stay sutures of 0 Vicryl placed through each side of midline. Midline incised. Digital palpation revealed no local adhesions. Blunt 12 mm trocar inserted. Pneumoperitoneum was created to a pressure of 15 mmHg. 0-degree laparoscope inserted. Under direct vision, three 5 mm ports placed subcostally. The gallbladder was grasped, advanced superiorly, and the peritoneum was opened distally to dissect out the cystic duct, cystic artery in critical view. The clip was placed at the base of the gallbladder on the cystic duct and as well as distally and the cystic duct divided. The artery triply ligated and divided. The gallbladder removed from its fossa utilizing electrocautery, removed from the abdomen through the umbilical port. Hemostasis assured. Trocars and retractors removed. The fascia closed with interrupted 2-0 Vicryl sutures. The skin closed with interrupted 4-0 Rapide. Dermabond applied. The patient tolerated the procedure well, transferred to Recovery in good condition. Sponge and needle count verified correct x2. Job ID: [id number]
[2020-09-04] MEDS: HYDROcodone/Acetaminophen 10/325 mg Tablet PO PRN ×2 (16:46→23:56)
--- NOTE | 2020-09-04 17:56 | PRG ---
DATE OF SERVICE: 09/04/2020 REASON FOR CONSULTATION: Choledocholithiasis. SUBJECTIVE: Overnight, the patient did not have any acute events or problems. She did have some residual right upper quadrant abdominal pain this morning prior to cholecystectomy, but since the cholecystectomy, she denies any abdominal pain at all. Currently, she denies any nausea, vomiting, fevers, chills, hematemesis, melena, or hematochezia. OBJECTIVE: VITAL SIGNS: Temperature 98.5, pulse 66, blood pressure 144/89, respiratory rate 18, saturating 97% on room air. GENERAL: The patient was lying in bed, in no acute distress. Alert and oriented x4. CARDIOVASCULAR: Regular rate and rhythm. RESPIRATORY: Clear to auscultation bilaterally. ABDOMEN: Normoactive bowel sounds. Soft, nondistended. Tenderness to palpation in the right upper quadrant and over the trocar sites. EXTREMITIES: No cyanosis, clubbing, or edema. LABORATORY DATA: Chemistry with a sodium of 142, potassium 3.6, chloride 107, CO2 of 26, BUN 12, creatinine 0.7, glucose 104. AST 122, ALT 413, alkaline phosphatase 182, total bilirubin 0.5. IMAGING DATA: The patient underwent ERCP on September 03, 2020, with moderate difficulty with cannulation of the ampulla. However, upon successful cannulation of the ampulla, there were no filling defects seen on initial cholangiogram. After sphincterotomy, balloon sweeps were performed with obtaining minimal amounts of yellow stone debris no greater than 1 mm in diameter. At the end of the procedure, bile and contrast were draining well from the sphincterotomy. However, during the course of the procedure, adequate filling of the gallbladder could not be visualized concerning for possible obstruction to the cystic duct. ASSESSMENT AND PLAN: The patient is a 30-year-old female with past medical history of hypertension and migraine headaches, presenting with cholelithiasis and probable choledocholithiasis. Choledocholithiasis: The patient presented to the hospital with increased right upper quadrant abdominal pain, nausea, and vomiting with LFTs that were concerning for an obstructive-type process. She subsequently underwent ERCP on September 03, 2020, with sphincterotomy performed in successive balloon sweeps yielding a minimal amount of yellow stone debris. At this time, the debris was most likely not causing complete obstruction, but she could have passed a stone prior to the procedure during the course of the ERCP, however, adequate filling of the gallbladder was not visualized consistent with a possible obstruction either at the outflow tract of the gallbladder itself or within the cystic duct, now status post cholecystectomy with significant reduction in her abdominal pain and no signs of post ERCP pancreatitis. RECOMMENDATIONS: 1. Pain control per primary team. 2. We will consider repeating her LFTs prior to discharge for further monitoring of liver inflammation. At this time, we will sign off. Please call with any additional questions. Job ID: [id number]
--- NOTE | 2020-09-04 20:05 | PDOC.HOSPP ---
- Subjective Encounter Date: 09/04/20 Encounter Time: 20:05 Subjective: Patient seen and examined for choledocholithiasis. Underwent ERCP followed by cholecystectomy. Some pain over the surgical site. No nausea or diarrhea reported - Objective Vital Signs & Weight: Vital Signs (12 hours) Temp Pulse Resp BP Pulse Ox 09/04/20 16:03 98.5 F 66 18 144/89 H 97 09/04/20 11:31 98.3 F 72 18 166/99 H 94 L Weight Weight 234 lb 14.4 oz I&O: 09/03/20 09/04/20 09/05/20 06:59 06:59 06:59 Intake Total 628 Balance 628 Result Diagrams: 09/05/20 05:31 09/05/20 05:31 Radiology Reviewed by me: Yes (HIDA scan reviewed) Hospitalist ROS - Review of Systems Respiratory: denies: cough, dry, shortness of breath, hemoptysis, SOB with excertion, pleuritic pain, sputum, wheezing, other Cardiovascular: denies: chest pain, palpitations, orthopnea, paroxysmal noc. dyspnea, edema, light headedness, other - Medication Medications: Active Medications Generic Name Dose Route Start Last Admin Trade Name Freq PRN Reason Stop Dose Admin Acetaminophen 650 mg 09/02/20 04:50 09/04/20 06:01 Acetaminophen 325 Mg Tab PO 650 mg Q4H PRN Administration Headache/Fever/Mild Pain (1-3) Hydrocodone Bitart/Acetaminophen 2 tab 09/04/20 10:06 09/04/20 16:46 Hydrocodone/Acetaminophen 10/325 Mg Tablet PO 2 tab Q6H PRN Administration Severe Pain (7-10) Ciprofloxacin 250 mg 09/02/20 06:00 09/04/20 06:01 Cipro 250 Mg Tab PO 250 mg BID@0600,2000 RICHIE Administration Clonidine 0.1 mg 09/03/20 20:35 09/03/20 20:41 Clonidine 0.1 Mg Tab PO 0.1 mg BIDPRN PRN Administration SBP > 160 use second Enoxaparin Sodium 40 mg 09/02/20 21:00 09/03/20 20:01 Enoxaparin Sodium 40 Mg/0.4 Ml Syringe SC Not Given 2100 RICHIE Famotidine 20 mg 09/02/20 09:00 09/04/20 07:15 Famotidine 20 Mg Tab PO 20 mg BID RICHIE Administration Fentanyl 50 mcg 09/02/20 05:34 09/02/20 18:41 Fentanyl 100 Mcg/2 Ml Vial SLOW IVP 50 mcg Q4H PRN Administration Pain Sodium Chloride 1,000 mls @ 100 mls/hr 09/02/20 05:00 09/04/20 16:46 Normal Saline 0.9% IV 09/05/20 03:00 1,000 mls .Q10H RICHIE Administration Promethazine HCl 12.5 mg/ 50.5 mls @ 202 mls/hr 09/02/20 04:50 09/03/20 18:41 Sodium Chloride IVPB 50.5 mls Q6H PRN Administration Nausea/vomiting use second Ketorolac Tromethamine 30 mg 09/02/20 04:56 09/04/20 02:19 Ketorolac Tromethamine 30 Mg/Ml Vial IVP 30 mg Q6H PRN Administration Moderate Pain (4-6) Metronidazole 500 mg 09/02/20 09:00 09/04/20 15:36 Metronidazole 500 Mg Tab PO 500 mg TID RICHIE Administration Ondansetron HCl 4 mg 09/02/20 04:50 09/04/20 07:15 Ondansetron Pf 4 Mg/2 Ml Vial IVP 4 mg Q6H PRN Administration Nausea/Vomiting use 1st Sodium Chloride 10 ml 09/03/20 21:00 09/04/20 07:16 Flush - Normal Saline 10 Ml Syringe IVF 10 ml Q12HR RICHIE Administration - Exam General - other findings: In mild distress due to pain Neck: supple, no JVD Heart: RRR, no gallops Respiratory: no rales, no ronchi Gastrointestinal: soft, normal bowel sounds, no guarding, no rigidity Gastrointestinal - other findings: Right upper quadrant discomfort Extremities: no cyanosis, no clubbing Psychiatric: A&O x 3 Hosp A/P (1) Abdominal pain Code(s): R10.9 - UNSPECIFIED ABDOMINAL PAIN Status: Acute Qualifiers: Abdominal location: epigastric Qualified Code(s): R10.13 - Epigastric pain (2) Abnormal LFTs Code(s): R94.5 - ABNORMAL RESULTS OF LIVER FUNCTION STUDIES Status: Acute (3) Choledocholithiasis Code(s): K80.50 - CALCULUS OF BILE DUCT W/O CHOLANGITIS OR CHOLECYST W/O OBST Status: Acute (4) Hypokalemia Code(s): E87.6 - HYPOKALEMIA Status: Acute (5) Obesity (BMI 30.0-34.9) Code(s): E66.9 - OBESITY, UNSPECIFIED Status: Chronic - Plan DVT proph w/SCDs 09/04 Continue IV hydration. Continue clear liquid diet today. Advance to GI soft in a.m. Continue ciprofloxacin and Flagyl. Recheck LFTs in a.m. Patient can probably be discharged in a.m. if okay with general surgery. Continue other me dications as above. Pain control.
[2020-09-04] MEDS: Enoxaparin Sodium 40 MG/0.4 ML SYRINGE SC SCH (20:33)
[2020-09-04] MEDS ORDERED: Famotidine/PF 20 mg/2ml Vial SLOW IVP SCH (21:00)
[2020-09-05] MEDS: Ondansetron PF 4 MG/2 ML Vial IVP PRN ×2 (00:29→06:29)
[2020-09-05] MEDS: Sodium Chloride 0.9% 1,000 ML IV SCH (05:31)
[2020-09-05] MEDS: HYDROcodone/Acetaminophen 10/325 mg Tablet PO PRN (05:44)
[2020-09-05 06:10] LABS: #Monocytes 1.4 thou/uL (0.11-0.59); #Neutrophils 6.7 thou/uL (1.40-6.50); %Basophils 0.1 % (0.0-1.0); %Eosinophils 0.3 % (0.0-10.0); %Lymphocytes 19.3 % (21.0-51.0); %Monocytes 14.2 % (0.0-10.0); Hemoglobin 12.5 g/dL (12.0-16.0); Mean Corpuscular Volume 88.2 fL (78.0-98.0); Mean Platelet Volume 9.1 fL (7.4-10.4); Platelet Count 179 thou/uL (130-400); RBC Distribution Width 12.3 % (11.5-14.5); Red Blood Cell (RBC) Count 4.17 mill/uL (4.20-5.40); White Blood Cell (WBC) Count 10.1 thou/uL (4.8-10.8)
[2020-09-05] MEDS: Cipro 250 MG TAB PO SCH (06:30)
[2020-09-05 06:36] LABS: ALT (SGPT) 262 U/L (8-55); AST (SGOT) 60 U/L (5-34); Albumin 3.4 g/dL (3.5-5.0); Alkaline Phosphatase 149 U/L (40-110); Anion Gap 12 mmol/L (10-20); BUN (Urea Nitrogen) 7 mg/dL (7.0-18.7); Bilirubin, Total 0.4 mg/dL (0.2-1.2); Calc. Creatinine Clearance 217 mL/min (70-130); Calcium 8.3 mg/dL (7.8-10.44); Carbon Dioxide 24 mmol/L (22-29); Chloride 106 mmol/L (98-107); Estimated GFR-MDRD Greater than 90; Globulin 2.9 g/dL (2.4-3.5); Glucose 92 mg/dL (70-105); Potassium 3.3 mmol/L (3.5-5.1); Protein, Total 6.3 g/dL (6.0-8.3); Sodium 139 mmol/L (136-145)
[2020-09-05 06:50] LABS: Lipase 6951 U/L (8-78)
[2020-09-05 07:13] VITALS: BP 151/92
--- NOTE | 2020-09-05 08:13 | PRG ---
DATE OF SERVICE: 09/05/2020 SUBJECTIVE: Ms. Mccullough seems to be doing fairly well today. Pain seems well controlled. She is afebrile. Vital signs are stable. Her abdomen wounds are healing well, appropriately tender. ASSESSMENT: Postoperative day #1, laparoscopic cholecystectomy. PLAN: Home today. Follow up with Dr. Spears in 2 weeks. Job ID: [id number]
[2020-09-05] MEDS ORDERED: Potassium Chloride 20 MEQ TAB PO SCH (08:45)
[2020-09-05] MEDS: Famotidine 20 MG TAB PO SCH ×2 (09:11→09:12)
[2020-09-05] MEDS: metroNIDAZOLE 500 MG TAB PO SCH (09:12)
[2020-09-05 11:32] VITALS: TEMP 98.3
--- NOTE | 2020-09-05 11:40 | DIS ---
DATE OF ADMISSION: 09/02/2020 DATE OF DISCHARGE: 09/05/2020 DISCHARGE DISPOSITION: Home. FOLLOWUP: 1. Follow up with primary care physician in next 3 to 4 days. 2. Follow up with Gastroenterology and General Surgery as scheduled. ALLERGIES: THE PATIENT IS ALLERGIC TO MORPHINE AND PENICILLIN. DISCHARGE MEDICATIONS: 1. Zofran as needed. 2. [place] as needed. 3. Procardia XL 30 mg daily. The patient was seen and examined on the day of discharge. Denies any new complaints. No chest pain, shortness of breath, palpitations, or nausea reported. INPATIENT PROCEDURES: 1. On 09/03/2020, the patient underwent ERCP with sphincterotomy and removal of the biliary calculus. 2. On 09/04/2020, patient underwent laparoscopic cholecystectomy. BRIEF HOSPITAL COURSE: The patient is a 30-year-old female, who presented to the emergency room on 01 September 2020 with sudden onset of abdominal discomfort, which was right-sided with several episodes of vomiting. The CT scan of the abdomen showed hepatic periportal edema. The right upper quadrant ultrasound was consistent with gallbladder sludge with positive sonographic Johnson sign with the common bile duct of 9 mm. The patient was evaluated by General Surgery and Gastroenterology. She underwent ERCP followed by cholecystectomy next day as scheduled. This morning, patient was cleared by General Surgery for discharge. She is asymptomatic without any nausea or vomiting. Her temperature on the day of discharge is 98.6. FINAL DIAGNOSES: 1. Sudden onset abdominal pain with abnormal LFTs secondary to choledocholithiasis, status post ERCP followed by cholecystectomy. 2. Hypokalemia. 3. Obesity. Job ID: [id number]
== END 2020-09-05 10:48 | disposition home or self-care (01) | DRG 419 ==
LOC: ERS 22:40 → T4-A 09-02 02:36
PROVIDERS: ADMIT Internal Medicine; ATTEND Internal Medicine
PROC: 0FC98ZZ Extirpation of Matter from Common Bile Duct, Via Natural or Artificial Opening Endoscopic (ICD-10-PCS; 2020-09-03)
PROC: 0FT44ZZ Resection of Gallbladder, Percutaneous Endoscopic Approach (ICD-10-PCS; principal; 2020-09-04)
DX: K80.50 Calculus of bile duct without cholangitis or cholecystitis without obstruction (principal); I10 Essential (primary) hypertension; E66.9 Obesity, unspecified; E87.6 Hypokalemia; G43.909 Migraine, unspecified, not intractable, without status migrainosus; Z88.0 Allergy status to penicillin; Z79.899 Other long term (current) drug therapy; Z68.34 Body mass index [BMI] 34.0-34.9, adult
CPT/HCPCS: 36415; 74177; 74330; 76705; 78227; 80048; 80053; 80076; 81003; 81015; 81025; 83690; 83735; 85025; 87635; 88304; 96374; 96375; A9537; J1100; J1650; J1885; J1956; J2175; J2405; J2550; J2704; J2765; J3010; J3475; Q9967; S0028; U0003

== ENCOUNTER 2021-02-24 13:37 | Emergency (ER) | payer BC, OTHER ==
[2021-02-24] MEDS ORDERED: Ondansetron ODT 4 MG TAB ONE (16:05)
== END 2021-02-24 16:24 | disposition home or self-care (01) ==
LOC: ERS 13:37
DX: B34.9 Viral infection, unspecified (principal); I10 Essential (primary) hypertension; Z79.899 Other long term (current) drug therapy
CPT/HCPCS: 99283; Q0162

== ENCOUNTER 2021-09-22 12:23 | Emergency (ER) | payer BC, OTHER ==
[2021-09-22] MEDS ORDERED: Acetaminophen 325 MG TAB ONE (13:22)
[2021-09-22] MEDS ORDERED: diphenhydrAMINE 50 MG/ML VIAL ONE (13:22)
[2021-09-22] MEDS ORDERED: Prochlorperazine 10 MG/2 ML VIAL ONE (13:25)
[2021-09-22 15:16] LABS: Pregnancy Test - Urine (BHCG) Negative (Negative); Pregu Control Background? CLEAR/WHITE (CLR/WHITE); Pregu Control Bar Appear? YES (CONTROL BAR); Specific Gravity 1.007 (1.002-1.036)
== END 2021-09-22 17:40 | disposition home or self-care (01) ==
LOC: ERS 12:23
DX: G43.909 Migraine, unspecified, not intractable, without status migrainosus (principal); I10 Essential (primary) hypertension
CPT/HCPCS: 81025; 96365; 96366; 96375; J0780; J1200

== ENCOUNTER 2023-01-05 11:01 | Outpatient (CLI) | payer BC | END 2023-01-05 11:02 | disposition home or self-care (01) | LOC: LABBT 11:01 | PROVIDERS: ATTEND Orthopaedic Surgery | DX: Z01.810 Encounter for preprocedural cardiovascular examination (principal); S82.851A Displaced trimalleolar fracture of right lower leg, initial encounter for closed fracture | CPT/HCPCS: 93005; 93010 ==

== ENCOUNTER 2023-01-09 12:26 | Day surgery (SDC) | payer BC ==
[2023-01-06 12:00] VITALS: BMI 38.4
[2023-01-09] MEDS ORDERED: Ropivacaine 0.5% HCl/PF (150 MG/30 ML VIAL) ONE (12:51)
[2023-01-09] MEDS ORDERED: Midazolam HCl 2 mg/2 ml Vial ONE ×2 (12:51→12:52)
[2023-01-09] MEDS ORDERED: Fentanyl 100 MCG/2 ML VIAL ONE ×2 (12:51→15:53)
[2023-01-09] MEDS ORDERED: Fentanyl 250 MCG/5 ML VIAL ONE (12:52)
[2023-01-09] MEDS ORDERED: Dexmedetomidine 200 MCG/2 ML VIAL ONE (12:53)
[2023-01-09] MEDS ORDERED: Levofloxacin 500 mg/D5W 100 ml Premix Bag ONE (13:02)
[2023-01-09] MEDS ORDERED: Clindamycin/D5W 900 mg/50 ml Premix Bag ONE (13:20)
[2023-01-09] MEDS ORDERED: Metoclopramide HCl 10 MG/2 ML VIAL ONE (13:48)
[2023-01-09] MEDS ORDERED: Ketorolac Tromethamine 30 MG/ML VIAL ONE (13:48)
[2023-01-09] MEDS ORDERED: Dexamethasone 20 MG/5 ML VIAL ONE (13:48)
[2023-01-09] MEDS ORDERED: Lidocaine 1% PF 5 ML VIAL ONE (13:48)
[2023-01-09] MEDS ORDERED: Ondansetron PF 4 MG/2 ML Vial ONE (13:48)
[2023-01-09] MEDS ORDERED: PROPOFOL 200 MG/20 ML VIAL ONE (13:48)
[2023-01-09] MEDS ORDERED: HYDROcodone/Acetaminophen 5/325 mg Tablet ONE (16:49)
[2023-01-09] MEDS ORDERED: Promethazine HCl 25 MG/ML VIAL ONE (16:49)
== END 2023-01-09 17:24 | disposition home or self-care (01) ==
LOC: SDC 12:26
PROVIDERS: ATTEND Orthopaedic Surgery
PROC: 0QSJ04Z Reposition Right Fibula with Internal Fixation Device, Open Approach (ICD-10-PCS; principal; 2023-01-09)
PROC: 0QSG04Z Reposition Right Tibia with Internal Fixation Device, Open Approach (ICD-10-PCS; principal; 2023-01-09)
DX: S82.851A Displaced trimalleolar fracture of right lower leg, initial encounter for closed fracture (principal); S93.431A Sprain of tibiofibular ligament of right ankle, initial encounter; I10 Essential (primary) hypertension; Z87.891 Personal history of nicotine dependence; Z79.899 Other long term (current) drug therapy; Z88.0 Allergy status to penicillin; Z88.5 Allergy status to narcotic agent; X50.1XXA Overexertion from prolonged static or awkward postures, initial encounter; W10.9XXA Fall (on) (from) unspecified stairs and steps, initial encounter
CPT/HCPCS: C1713; C1776; C1874; J1100; J1885; J1956; J2250; J2405; J2550; J2704; J2765; J2795; J3010; J3490

== ENCOUNTER 2023-09-18 10:07 | Emergency (ER) | payer BC, OTHER ==
[2023-09-18] MEDS ORDERED: Ketorolac Tromethamine 30 MG/ML VIAL ONE (10:28)
== END 2023-09-18 11:00 | disposition home or self-care (01) ==
LOC: ERS 10:07
DX: S92.352A Displaced fracture of fifth metatarsal bone, left foot, initial encounter for closed fracture (principal); I10 Essential (primary) hypertension; Z79.899 Other long term (current) drug therapy; W18.49XA Other slipping, tripping and stumbling without falling, initial encounter
CPT/HCPCS: 96372; J1885